=== PATIENT | female | born 1990 | race Caucasian/White ===

== ENCOUNTER 2020-08-01 02:41 | Emergency (ER) | payer MEDICAID, OTHER ==
--- NOTE | 2020-08-01 04:29 | RADIOLOGY REPORT (SQ) ---
CLINICAL INDICATION: pain fall. . TECHNIQUE: 2 view(s) were obtained of the right forearm. COMPARISON: None. FINDINGS: No acute displaced fracture is identified of the forearm. Alignment appears anatomic. Joint spaces are within normal limits for age. Surrounding soft tissues are unremarkable. If wrist or elbow are clinically in suspicion, then dedicated radiography is advised. IMPRESSION: No evidence of acute displaced fracture of the forearm. Wrist and elbow dictated separately
--- NOTE | 2020-08-01 04:30 | RADIOLOGY REPORT (SQ) ---
CLINICAL INDICATION: pain fall. . TECHNIQUE: 3 view(s) were obtained of the right wrist. COMPARISON: None. FINDINGS: No acute displaced fracture is identified of the wrist. Alignment appears anatomic. Joint spaces are within normal limits for age. Surrounding soft tissues are unremarkable. IMPRESSION: No evidence of acute displaced fracture of the wrist.
--- NOTE | 2020-08-01 04:31 | RADIOLOGY REPORT (SQ) ---
CLINICAL INDICATION: pain fall. . TECHNIQUE: 2 view(s) were obtained of the right elbow. Suboptimal positioning COMPARISON: None. FINDINGS: No acute displaced fracture is identified of the elbow. Alignment appears anatomic. Joint spaces are within normal limits for age. No large joint effusion. Surrounding soft tissues are unremarkable. IMPRESSION: No evidence of acute displaced fracture of the elbow.
--- NOTE | 2020-08-01 06:33 | ER Document Report ---
ED General - General Chief Complaint: Arm Injury Stated Complaint: RIGHT ARM INJURY // FALL Time Seen by Provider: 08/01/20 06:12 Mode of Arrival: Ambulatory Information source: Patient TRAVEL OUTSIDE OF THE [place] IN LAST 30 DAYS: No - HPI Notes: Patient complains of right elbow and right wrist pain. She states this started several hours before arrival. 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 She states the pain is the worst when she tries to rotate the wrist. The pain is relieved by rest. The pain does radiate up the right arm. It is sharp and moderate to severe. It is constant. She denies any other significant injuries. - Related Data Allergies/Adverse Reactions: aspirin Allergy (Severe, Verified 08/01/20 03:03) Anaphylaxis Past Medical History - General Information source: Patient - Social History Smoking Status: Current Every Day Smoker Chew tobacco use (# tins/day): No Frequency of alcohol use: Social Drug Abuse: None Family History: Reviewed & Not Pertinent Patient has homicidal ideation: No Renal/ Medical History: Denies: Hx Peritoneal Dialysis Review of Systems - Review of Systems Constitutional: denies: Chills, Fever Cardiovascular: denies: Chest pain, Palpitations Respiratory: denies: Cough, Short of breath -: Yes All other systems reviewed and negative Physical Exam - Vital signs Vitals: Temp Pulse Resp BP Pulse Ox 98.6 F 86 20 121/79 100 08/01/20 02:41 08/01/20 02:41 08/01/20 02:41 08/01/20 02:41 08/01/20 02:41 Interpretation: Normal - General General appearance: Appears well, Alert - HEENT Head: Normocephalic, Atraumatic Eyes: Normal Pupils: PERRL - Respiratory Respiratory status: No respiratory distress Chest status: Nontender Breath sounds: Normal Chest palpation: Normal - Cardiovascular Rhythm: Regular Heart sounds: Normal auscultation Murmur: No - Abdominal Inspection: Normal Distension: No distension Bowel sounds: Normal Tenderness: Nontender Organomegaly: No organomegaly - Back Back: Normal, Nontender - Extremities General upper extremity: Normal inspection, Normal color, Normal temperature, Other - Right elbow and right wrist are both diffusely tender to palpation. Inspection of the right elbow and right wrist is unremarkable. There is no significant swelling erythema or warmth. She does have limited range of motion of the right elbow and right wrist secondary to pain. She has a 2+ radial pulse on the right. She can flex and extend all fingers on the right hand. She has normal capillary refill. General lower extremity: Normal inspection, Nontender, Normal color, Normal ROM, Normal temperature, Normal weight bearing. No: Idris's sign - Neurological Neuro grossly intact: Yes Cognition: Normal Orientation: AAOx4 [place] Coma Scale Eye Opening: Spontaneous [place] Coma Scale Verbal: Oriented [place] Coma Scale Motor: Obeys Commands [place] Coma Scale Total: 15 Speech: Normal Motor strength normal: LUE, RUE, LLE, RLE Sensory: Normal - Psychological Associated symptoms: Normal affect, Normal mood - Skin Skin Temperature: Warm Skin Moisture: Dry Skin Color: Normal Course - Re-evaluation Re-evalutation: 08/01/20 06:31 Patient complains of pain to the right wrist and right elbow after a fall. X- rays are unremarkable although positioning was suboptimal. I did discuss with the patient the possibility of an occult fracture and the need for follow-up with orthopedics. - Vital Signs Vital signs: Temp Pulse Resp BP Pulse Ox 98.6 F 86 20 121/79 100 08/01/20 02:41 08/01/20 02:41 08/01/20 02:41 08/01/20 02:41 08/01/20 02:41 - Diagnostic Test Radiology reviewed: Image reviewed, Reports reviewed Procedures - Immobilization Right Wrist Time completed: 06:31 Pre-Proc Neuro Vasc Exam: Normal Immobilizer type: Cock-up Performed by: RN Post-Proc Neuro Vasc Exam: Normal Alignment checked and good: Yes Discharge - Discharge Clinical Impression: Right wrist sprain Qualifiers: Encounter type: initial encounter Qualified Code(s): S63.501A - Unspecified sprain of right wrist, initial encounter Contusion of right elbow Qualifiers: Encounter type: initial encounter Qualified Code(s): S50.01XA - Contusion of right elbow, initial encounter Condition: Stable Disposition: HOME, SELF-CARE Instructions: Wrist Sprain ([facility]), Contusion ([facility]) Additional Instructions: Please call orthopedics as soon as possible to arrange follow up Referrals: GUILLERMO RIVERA MD [ACTIVE STAFF] - Follow up in 3-5 days
[2020-08-01 07:22] VITALS: BP 126/72
== END 2020-08-01 07:21 | disposition home or self-care (01) ==
LOC: ER 02:41
DX: S63.501A Unspecified sprain of right wrist, initial encounter (principal); S50.01XA Contusion of right elbow, initial encounter; W01.0XXA Fall on same level from slipping, tripping and stumbling without subsequent striking against object, initial encounter; Y92.524 Gas station as the place of occurrence of the external cause; F17.200 Nicotine dependence, unspecified, uncomplicated
CPT/HCPCS: 99284